=== PATIENT | male | born 1990 | race Caucasian/White ===

== ENCOUNTER 2018-07-13 08:57 | Emergency (ER) | payer OTHER ==
--- NOTE | 2018-07-13 09:22 | EDM.PDOC ---
ED HPI GENERAL MEDICAL PROBLEM - General Chief Complaint: Chest Pain Stated Complaint: CHEST PAIN/DIFF BREATHING Time Seen by Provider: 07/13/18 09:13 - History of Present Illness INITIAL COMMENTS - FREE TEXT/NARRATIVE: HISTORY AND PHYSICAL: History of present illness: Patient 27-year-old male sensory concern of chest pain this is vaguely described he said off and on for quite some time [place] associated shortness of breath palpitations nausea vomiting diaphoresis he also has a concern of what sounds like heartburn and reflux intermittently. He is nonsmoker he denies drugs there's no family history of cardiac disease Review of systems: As per history of present illness and below otherwise all systems reviewed and negative. Past medical history: As per history of present illness and as reviewed below otherwise noncontributory. Surgical history: As per history of present illness and as reviewed below otherwise noncontributory. Social history: No reported history of drug or alcohol abuse. Family history: As per history of present illness and as reviewed below otherwise noncontributory. Physical exam: HEENT: Atraumatic, normocephalic, pupils reactive, negative for conjunctival pallor or scleral icterus, mucous membranes moist, throat clear, neck supple, nontender, trachea midline. Lungs: Clear to auscultation, breath sounds equal bilaterally, chest nontender. Heart: S1S2, regular, negative for clicks, rubs, or JVD. Abdomen: Soft, nondistended, nontender. Negative for masses or hepatosplenomegaly. Negative for costovertebral tenderness. Pelvis: Stable nontender. Genitourinary: Deferred. Rectal: Deferred. Extremities: Atraumatic, negative for cords or calf pain. Neurovascular unremarkable. Neuro: Awake, alert, oriented. Cranial nerves II through XII unremarkable. Cerebellum unremarkable. Motor and sensory unremarkable throughout. Exam nonfocal. Diagnostics: CBC CMP troponin PT/INR carboxyhemoglobin chest x-ray EKG Therapeutics: GI cocktail Zantac 300 milligrams by mouth Impression: #1 atypical chest pain #2 rule out gastroesophageal reflux disease Definitive disposition and diagnosis as appropriate pending reevaluation and review of above. Mid-Sternal Chest Pain Score (Numeric/FACES): 5 - Related Data Allergies Allergy/AdvReac Type Severity Reaction Status Date / Time No Known Allergies Allergy Verified 07/13/18 09:04 Home Meds: Home Meds . [No Known Home Meds] 07/13/18 [History] Past Medical History Psychiatric History: Reports: Suicidal Ideation Endocrine/Metabolic History: Reports: Other (See Below) Other Endocrine/Metabolic History: hormone imbalance Social & Family History - Family History Family Medical History: Noncontributory - Tobacco Use Smoking Status *Q: Never Smoker - Recreational Drug Use Recreational Drug Use: No ED ROS GENERAL - Review of Systems Review Of Systems: ROS reveals no pertinent complaints other than HPI. ED EXAM, GENERAL - Physical Exam Exam: See Below (See dictation) Course - Vital Signs Last Recorded V/S: Last Vital Signs Temp 35.6 C 07/13/18 09:02 Pulse 77 07/13/18 09:02 Resp 18 07/13/18 09:02 BP 142/96 H 07/13/18 09:02 Pulse Ox 100 07/13/18 09:02 - Orders/Labs/Meds Orders: Active Orders 24 hr Category Date Time Status EKG Documentation Completion [RC] STAT Care 07/13/18 08:58 Active EKG Documentation Completion [RC] STAT Care 07/13/18 09:19 Inactive COMPREHENSIVE METABOLIC PN,CMP [CHEM] Stat Lab 07/13/18 09:36 Received TROPONIN I [CHEM] Stat Lab 07/13/18 09:36 Received Labs: Laboratory Tests 07/13/18 07/13/18 07/13/18 Range/Units 09:36 09:36 09:36 WBC 6.41 (4.0-11.0) K/uL RBC 5.41 (4.50-5.90) M/uL Hgb 16.2 (13.0-17.0) g/dL Hct 46.2 (38.0-50.0) % MCV 85.4 (80.0-98.0) fL MCH 29.9 (27.0-32.0) pg MCHC 35.1 (31.0-37.0) g/dL RDW Std Deviation 39.8 (28.0-62.0) fl RDW Coeff of Jose F 13 (11.0-15.0) % Plt Count 212 (150-400) K/uL MPV 9.20 (7.40-12.00) fL Neut % (Auto) 56.6 (48.0-80.0) % Lymph % (Auto) 32.3 (16.0-40.0) % [place] % (Auto) 9.4 (0.0-15.0) % Eos % (Auto) 1.4 (0.0-7.0) % Baso % (Auto) 0.3 (0.0-1.5) % Neut # (Auto) 3.6 (1.4-5.7) K/uL Lymph # (Auto) 2.1 (0.6-2.4) K/uL [place] # (Auto) 0.6 (0.0-0.8) K/uL Eos # (Auto) 0.1 (0.0-0.7) K/uL Baso # (Auto) 0.0 (0.0-0.1) K/uL Nucleated RBC % 0.0 /100WBC Nucleated RBCs # 0 K/uL INR 0.96 ABG Carboxyhemoglobin 2.1 (0-15) % Meds: Medications Discontinued Medications Generic Name Dose Route Start Last Admin Trade Name [place] PRN Reason Stop Dose Admin Ranitidine HCl 300 mg 07/13/18 21:00 Zantac PO BEDTIME NATHEN Ranitidine HCl 300 mg 07/13/18 09:35 07/13/18 10:02 Zantac PO 07/13/18 09:36 300 mg STAT ONE Administration Ranitidine HCl Confirm 07/13/18 10:00 07/13/18 10:09 Zantac Administered 07/13/18 10:01 Not Given Dose 300 mg .ROUTE .STK-MED ONE Departure - Departure Time of Disposition: 10:17 Disposition: Home, Self-Care 01 Condition: Good Clinical Impression: Atypical chest pain - Discharge Information Referrals: PCP,None [Primary Care Provider] - Forms: ED Department Discharge Additional Instructions: The following information is given to patients seen in the emergency department who are being discharged to home. This information is to outline your options for follow-up care. We provide all patients seen in our emergency department with a follow-up referral. The need for follow-up, as well as the timing and circumstances, are variable depending upon the specifics of your emergency department visit. If you don't have a primary care physician on staff, we will provide you with a referral. We always advise you to contact your personal physician following an emergency department visit to inform them of the circumstance of the visit and for follow-up with them and/or the need for any referrals to a consulting specialist. The emergency department will also refer you to a specialist when appropriate. This referral assures that you have the opportunity for followup care with a specialist. All of these measure are taken in an effort to provide you with optimal care, which includes your followup. Under all circumstances we always encourage you to contact your private physician who remains a resource for coordinating your care. When calling for followup care, please make the office aware that this follow-up is from your recent emergency room visit. If for any reason you are refused follow-up, please contact the [facility] emergency department at and asked to speak to the emergency department charge nurse. [facility] [address] [place] [id number] Protonix as prescribed follow-up primary medical doctor and/or clinic above call to schedule routine appointment return as needed as discussed - My Orders Last 24 Hours: My Active Orders 07/13/18 08:58 EKG Documentation Completion [RC] STAT 07/13/18 09:19 EKG Documentation Completion [RC] STAT 07/13/18 09:36 COMPREHENSIVE METABOLIC PN,CMP [CHEM] Stat TROPONIN I [CHEM] Stat - Assessment/Plan Last 24 Hours: My Active Orders 07/13/18 08:58 EKG Documentation Completion [RC] STAT 07/13/18 09:19 EKG Documentation Completion [RC] STAT 07/13/18 09:36 COMPREHENSIVE METABOLIC PN,CMP [CHEM] Stat TROPONIN I [CHEM] Stat
[2018-07-13] MEDS ORDERED: Ranitidine 15 MG/ML Syrup 10 ML UD Cup PO ONE (09:35)
[2018-07-13] MEDS ORDERED: Ranitidine 15 MG/ML Syrup 10 ML UD Cup ONE (10:00)
--- NOTE | 2018-07-13 10:14 | CR ---
EXAMINATION: Portable chest radiograph. HISTORY: Shortness of breath. FINDINGS: The trachea is midline. The cardiomediastinal silhouette is within normal limits. No pulmonary infiltrates, effusions or pneumothorax. Osseous structures appear unremarkable. IMPRESSION: No acute cardiopulmonary process.
[2018-07-13 10:21] LABS: CHLORIDE,CL 104 mmol/L (98-107); SODIUM,NA 141 mmol/L (136-148)
[2018-07-13] MEDS ORDERED: Ranitidine 15 MG/ML Syrup 10 ML UD Cup PO SCH (21:00)
== END 2018-07-13 10:29 | disposition home or self-care (01) ==
LOC: MW.ED 08:57
DX: R07.89 Other chest pain (principal)
CPT/HCPCS: 36415; 71045; 80053; 82375; 84484; 85025; 85610; 93005; 99285; A9270; 99283